=== PATIENT | male | born 1985 | race Hispanic/Latino ===

== ENCOUNTER 2017-07-03 16:52 | Emergency (ER) | payer BC, SELFPAY ==
[2017-07-03] MEDS ORDERED: Adacel (T-DAP) 0.5 ML VIAL ONE (17:03)
== END 2017-07-03 17:37 | disposition home or self-care (01) ==
LOC: SCSER 16:52
DX: S61.210A Laceration without foreign body of right index finger without damage to nail, initial encounter (principal); Z23 Encounter for immunization; I10 Essential (primary) hypertension; W26.0XXA Contact with knife, initial encounter
CPT/HCPCS: 12001; 90471; 90715

== ENCOUNTER 2019-08-26 21:26 | Emergency (ER) | payer SELFPAY ==
[2019-08-26 22:00] LABS: #Eosinphils 0.2 thou/uL (0.0-0.7); #Lymphocytes 3.6 thou/uL (1.20-3.40); #Monocytes 0.8 thou/uL (0.11-0.59); #Neutrophils 7.2 thou/uL (1.40-6.50); %Basophils 0.3 % (0.0-1.0); %Eosinophils 1.4 % (0.0-10.0); %Lymphocytes 30.2 % (21.0-51.0); %Monocytes 6.8 % (0.0-10.0); %Neutrophils 61.4 % (42.0-75.0); Hemoglobin 16.3 g/dL (14.0-18.0); Mean Corpuscular HGB CONC 33.7 g/dL (32.0-36.0); Mean Corpuscular Hemoglobin 29.3 pg (27.0-31.0); Mean Corpuscular Volume 87.1 fL (78.0-98.0); Mean Platelet Volume 9.3 fL (7.4-10.4); Platelet Count 249 thou/uL (130-400); RBC Distribution Width 12.4 % (11.5-14.5); Red Blood Cell (RBC) Count 5.56 mill/uL (4.70-6.10); White Blood Cell (WBC) Count 11.8 thou/uL (4.8-10.8)
[2019-08-26 22:28] LABS: ALT (SGPT) 89 U/L (8-55); AST (SGOT) 39 U/L (5-34); Albumin 4.9 g/dL (3.5-5.0); Alkaline Phosphatase 103 U/L (40-110); Anion Gap 17 mmol/L (10-20); BUN (Urea Nitrogen) 14 mg/dL (8.9-20.6); Bilirubin, Total 0.4 mg/dL (0.2-1.2); Calc. Creatinine Clearance 0 mL/min (70-130); Calcium 9.9 mg/dL (7.8-10.44); Carbon Dioxide 25 mmol/L (22-29); Chloride 103 mmol/L (98-107); Estimated GFR-MDRD Greater than 90; Globulin 3.1 g/dL (2.4-3.5); Glucose 108 mg/dL (70-105); Potassium 3.8 mmol/L (3.5-5.1); Sodium 141 mmol/L (136-145)
== END 2019-08-26 22:49 | disposition home or self-care (01) ==
LOC: ERS 21:26
DX: I10 Essential (primary) hypertension (principal); F41.9 Anxiety disorder, unspecified
CPT/HCPCS: 80053; 84484; 85025; 93005

== ENCOUNTER 2022-12-01 18:00 | Outpatient (CLI) | payer BC | END 2022-12-01 18:01 | disposition home or self-care (01) | LOC: SLEEPLAB 18:00 | PROVIDERS: ATTEND Family Medicine | DX: G47.33 Obstructive sleep apnea (adult) (pediatric) (principal); R09.02 Hypoxemia | CPT/HCPCS: 95800 ==

== ENCOUNTER 2023-01-06 19:00 | Outpatient (CLI) | payer BC | END 2023-01-06 19:01 | disposition home or self-care (01) | LOC: SLEEPLAB 19:00 | PROVIDERS: ATTEND Family Medicine | DX: G47.33 Obstructive sleep apnea (adult) (pediatric) (principal); R09.02 Hypoxemia | CPT/HCPCS: 95811 ==

== ENCOUNTER 2024-03-07 07:41 | Outpatient (CLI) | payer BC ==
[2024-03-07 08:58] LABS: #Basophils 0.02 10x3/uL (0.0-0.2); #Eosinphils 0.22 10x3/uL (0.0-0.5); #Monocytes 0.48 10x3/uL (0.0-1.1); #Neutrophils 2.86 10x3/uL (1.5-8.4); %Basophils 0.3 % (0.0-2.0); %Eosinophils 3.8 % (0.0-6.0); %Lymphocytes 37.5 % (18.0-47.0); %Monocytes 8.4 % (0.0-10.0); %Neutrophils 49.8 % (40.0-75.0); Hematocrit 43.6 % (38.8-50.0); Hemoglobin 15.1 g/dL (13.5-17.5); Mean Corpuscular HGB CONC 34.6 g/dL (32.0-36.0); Mean Corpuscular Hemoglobin 29.8 pg (27.0-33.0); Mean Platelet Volume 11.6 fl (7.4-10.4); Platelet Count 214 10x3/uL (150-450); RBC Distribution Width 12.5 % (11.5-14.5); Red Blood Cell (RBC) Count 5.07 10x6/uL (4.32-5.72); White Blood Cell (WBC) Count 5.7 10x3/uL (3.5-10.5)
[2024-03-07 09:10] LABS: ALT (SGPT) 74 U/L (8-55); AST (SGOT) 27 U/L (5-34); Albumin 4.1 g/dL (3.5-5.0); Alkaline Phosphatase 93 U/L (40-110); Anion Gap 16 mmol/L (10-20); BUN (Urea Nitrogen) 12 mg/dL (8.9-20.6); Bilirubin, Total 0.3 mg/dL (0.2-1.2); Calc. Creatinine Clearance 0 mL/min (70-130); Calcium 9.4 mg/dL (7.8-10.44); Carbon Dioxide 23 mmol/L (22-29); Chloride 105 mmol/L (98-107); Estimated GFR 116; Globulin 2.8 g/dL (2.4-3.5); Glucose 97 mg/dL (70-105); Potassium 4.6 mmol/L (3.5-5.1); Protein, Total 6.9 g/dL (6.0-8.3); Sodium 139 mmol/L (136-145)
== END 2024-03-07 07:42 | disposition home or self-care (01) ==
LOC: LABBT 07:41
PROVIDERS: ATTEND Surgery
DX: Z01.812 Encounter for preprocedural laboratory examination (principal); K60.1 Chronic anal fissure
CPT/HCPCS: 80053; 85025

== ENCOUNTER 2024-03-28 06:24 | Day surgery (SDC) | payer BC ==
[2024-03-27 10:32] VITALS: BMI 39.1
[2024-03-28] MEDS ORDERED: Famotidine/PF 20 mg/2ml Vial ONE (08:33)
[2024-03-28] MEDS ORDERED: Lidocaine 2% PF 5 ML VIAL ONE (08:37)
[2024-03-28] MEDS ORDERED: Bacitracin Zinc Ointment 30 gm TUBE ONE (08:37)
[2024-03-28] MEDS ORDERED: Bupivacaine 0.25% HCL 30 ML VIAL ONE (08:37)
[2024-03-28] MEDS ORDERED: PROPOFOL 20 ML ONE ×2 (08:37→08:59)
[2024-03-28] MEDS ORDERED: EPINEPHrine 1 MG/ML VIAL ONE (08:37)
[2024-03-28] MEDS ORDERED: fentaNYL PF 100 MCG/2 ML SYRINGE ONE (08:37)
[2024-03-28] MEDS ORDERED: cefOXitin 2 GM VIAL ONE (08:43)
[2024-03-28] MEDS ORDERED: Sodium Chloride 0.9% 100 ML ONE (08:43)
[2024-03-28] MEDS ORDERED: Esmolol 100 MG/10 ML VIAL ONE (08:57)
[2024-03-28] MEDS ORDERED: Ketorolac Tromethamine 30 MG (1 mL) VIAL ONE (09:09)
[2024-03-28] MEDS ORDERED: Ondansetron PF 4 MG/2 ML Vial ONE (09:09)
[2024-03-28] MEDS ORDERED: fentaNYL 50 mcg/mL 1 mL Vial ONE ×3 (09:13→10:14)
[2024-03-28] MEDS ORDERED: Metoprolol Tartrate 5 MG (5 mL) VIAL ONE (09:40)
[2024-03-28] MEDS ORDERED: Promethazine HCl 25 MG/ML VIAL ONE (11:04)
[2024-03-28] MEDS ORDERED: HYDROcodone/Acetaminophen 5/325 mg Tablet ONE (11:50)
== END 2024-03-28 12:56 | disposition home or self-care (01) ==
LOC: SDC 06:24
PROVIDERS: ATTEND Surgery
PROC: 0D8R0ZZ Division of Anal Sphincter, Open Approach (ICD-10-PCS; principal; 2024-03-28)
DX: K60.1 Chronic anal fissure (principal); I10 Essential (primary) hypertension; F41.9 Anxiety disorder, unspecified; E66.01 Morbid (severe) obesity due to excess calories; Z68.38 Body mass index [BMI] 38.0-38.9, adult; Z79.899 Other long term (current) drug therapy
CPT/HCPCS: 93005; 93010; J0171; J0665; J0694; J1885; J2001; J2405; J2550; J2704; J3010; J3490; S0028

== ENCOUNTER 2025-06-05 07:12 | Outpatient (CLI) | payer BC | END 2025-06-05 07:13 | disposition home or self-care (01) | LOC: ULT 07:12 | PROVIDERS: ATTEND Nurse Practitioner Family | DX: R74.8 Abnormal levels of other serum enzymes (principal); R16.0 Hepatomegaly, not elsewhere classified | CPT/HCPCS: 76705 ==